=== PATIENT | female | born 1965 | race Caucasian/White ===

== ENCOUNTER 2025-06-13 11:38 | Outpatient (CLI) | payer SELFPAY ==
--- NOTE | ~2025-06-13 | US_ITS ---
Renal-Bladder ultrasound Clinical History: Family history of renal cell cancer Technique: Real-time sonographic imaging of the kidneys and urinary bladder was performed. Findings: The right kidney measures 9.5 cm in length and the left kidney measures 9.4 cm. There is no hydronephrosis or renal calculus identified. Renal cortical echogenicity is within normal limits. No renal mass lesion is identified. The urinary bladder is moderately distended at the time of this exam. No intraluminal echoes are iden tified. No abnormal wall thickening is seen. Impression: Unremarkable ultrasound of the kidneys and urinary bladder. Reviewed, dictated and finalized at location M. Impression: Unremarkable ultrasound of the kidneys and urinary bladder.
== END 2025-06-13 11:39 | disposition home or self-care (01) ==
LOC: MICIMG 11:43
PROVIDERS: PCP Nurse Practitioner Adult Health; Visit Provider Nurse Practitioner Adult Health
DX: Z80.51 Family history of malignant neoplasm of kidney (principal)
CPT/HCPCS: 76775

== ENCOUNTER 2025-10-18 08:20 | Outpatient (CLI) | payer OTHER, SELFPAY ==
--- NOTE | ~2025-10-18 | MM_ITS ---
EXAMINATION: MM screening roxann BI w gm HISTORY: Screening. TECHNIQUE: Craniocaudal and mediolateral oblique 3-D tomosynthesis images were obtained and synthetic 2-D images were generated. CAD analysis was submitted and interpreted. COMPARISON: None available. BREAST PARENCHYMAL COMPOSITION: Not Dense: The breasts are almost entirely fatty FINDINGS: No suspicious masses are seen. There are no suspicious calcifications. No unexplained architectural distortion is seen. There are no skin or nipple abnormalities identified. There is no adenopathy seen on the images submitted. IMPRESSION: No mammographic evidence to suggest malignancy is seen. The patient may return to screening mammography as per ACR guidelines. BI-RADS 1 - Negative. Reviewed, dictated and finalized at location C. DOCUMENT IMPROVEMENT SPECIALIST
== END 2025-10-18 08:21 | disposition home or self-care (01) ==
LOC: ANHFOHIMG 08:22
PROVIDERS: PCP Nurse Practitioner Adult Health; Visit Provider Nurse Practitioner Adult Health
DX: Z12.31 Encounter for screening mammogram for malignant neoplasm of breast (principal)
CPT/HCPCS: 77063; 77067

== ENCOUNTER 2025-11-05 14:27 | Emergency (ER) | payer OTHER, SELFPAY ==
--- OUTSIDE RECORDS SUMMARY | 2024-10-22 15:30 | XMS_ITS ---
Author Organization [facility] Address Replaced by [facility] [place] [address] [id number] Care Team Providers Care Dispenser Operator Name Role Phone Duarte Ly Primary Care Provider Migration, Provider Unavailable Unavailable REASON FOR VISIT Multum To Medispan Conversion Encounter Medications Medication SIG (Take, Route, Frequency, Duration) Notes Start Date End Date Status Levothyroxine Sodium 25 MCG Tablet 1 tab(s) orally once a day Unknown Ezetimibe 10 MG Tablet 1 tab(s) orally o nce a day Unknown Plaquenil 200 MG Tablet 1 tab(s) orally once a day Unknown Encounters Encounter Location Date Provider Diagnosis [facility] [place] [id number] [address] [id number] 10/22/2024 Provider Migration Plan Of Treatment No Information Progress Notes * Paolo GARLANDaDOB:1965 (60 yo F)Acc No.[id number]:10/22/2024 Patient: Jennifer Ohara Provider: Jim cross Migration :1965 A ge:59 Y S ex:Female Date:10/22/2024 Address:[address] [place], [place] [phone] Pcp:Duarte Ly Subjective: * Chief Complaints: * M ultum To Medispan Conversion Encounter * Medications: U nknownPlaquenil 200 MG Tablet 1 tab(s) orally once a day Ezetimibe 10 MG Tablet 1 tab(s) orally once a day Levothyroxine Sodium 25 MCG Tablet 1 tab(s) orally once a day Unknown Plaquenil 200 MG Tablet 1 tab(s) orally once a day Unknown Ezetimibe 10 MG Tablet 1 tab(s) orally once a day Unknown Levothyroxine Sodium 25 MCG Tablet 1 tab(s) orally once a day * Electronic signature of Prov galindo Migration on 11/05/2025 at 02:29 PM PEANUT SEPARATOR Sign off status: Pending * Provider: Jim cross Migration Date: 1 12/23/2023 Generated for Dyan bosch/Jose/Rodrick on: 01/06/2025 02:29 PM PEANUT SEPARATOR
--- OUTSIDE RECORDS SUMMARY | 2025-11-05 14:29 | XMS_ITS | Data Portability ---
Author Organization ID - [facility] [employer], Main Office Address [address] [place] [address] Care Team Providers Care Nursing Coordinator Name Role Phone GABRIEL BLANCAS Primary Care Provider [phone] JALYN MARIN Hydraulic Corrugating Machine Operator [phone] TONG FITZGERALD Dry Lumber Grader Assessment Encounter Date Assessment Date Assessment LastModified by Organization Details LastModified Time 07/06/2024 07/06/2024 04/13/2024: [facility] did not report the labs TSH 6.86H, FT4 1.0 Chol 221, LDL 125, TG 162 VIT D 30 Not available 07/06/2024 10:18:58 10/03/2024 10/03/2024 04/13/2024: [facility] did not report the labs TSH 6.86H, FT4 1.0 Chol 221, LDL 125, TG 162 VIT D 30 09/23/2024: [facility] Stable Not available 10/03/2024 11:08:34 Plan of Treatment Reminders Order Date Submit Date Provider Last Modified By Organization Details Last Modified Time Details Appointments None recorded. Lab vitamin D, 25-hydroxy, total, serum 2023 024 [email or web address] [facility], [address], [place], [address], 08:33:47 rapid flu (A+B) 2023 024 [email or web address] 6 [facility], [address] [place], [address], 4 16:49:38 rapid strep group A, throat [address] [facility], [address] [place], [address], 4 16:49:38 SARS CoV 2 RNA (COVID-19), QL, security operations center analyst-PCR, respiratory specimen [address] [facility], [address] [place], [address], 4 16:49:38 CMP, serum or plasma 2023 024 [place] [id number] [facility], [address] , [place], [address], 5 08:33:46 CBC w/ auto diff 2023 024 [place] [address] 6 [facility], [address] , [place], [address], 5 08:33:46 TSH + free T4, serum 2023 [place] [address] 6 [facility], [address] , [place], [address], 5 08:33:47 lipid panel, serum 2023 [place] [address] 6 [facility], [address] , [place], [address], 5 08:33:47 vitamin B12 + folate, serum or blood 2023 [place] [address] 6 [facility], [address] , [place], [address], 5 08:33:47 CMP, serum or plasma 2023 024 awkins 6 [facility], [address] , [place], [address], 5 09:13:20 CBC w/ auto diff 2023 024 [email or web address] 6 [facility], [address], [place], [address], 5 09:13:20 TSH + free T4, serum 2023 024 [email or web address] 6 [facility], [address], [place], [address], 5 09:13:20 lipid panel, serum 2023 024 [email or web address] 6 [facility], [address], [place], [address], 5 09:13:21 vitamin D, 25-hydroxy, total, serum 2023 024 [email or web address] 6 [facility], [address], [place], [address], 5 09:13:21 vitamin B12 + folate, serum or blood 2023 024 [email or web address] 6 [facility], [address], [place], [address], 5 09:13:21 CMP, serum or plasma 2023 024 [email or web address] 6 [facility], [address], [place], [address], 4 08:52:38 CBC w/ auto diff 2023 024 [email or web address] 6 [facility], [address], [place], [address], 4 08:52:39 TSH + free T4, serum 2023 024 [email or web address] 6 [facility], [address], [place], [address], 4 08:52:39 lipid panel, serum 2023 024 [email or web address] 6 [facility], [address], [place], [address], 4 08:52:39 vitamin D, 25-hydroxy, total, serum 2023 024 [email or web address] 6 [facility], [address], [place], [address], 4 08:52:39 vitamin B12 + folate, serum or blood 2023 024 [email or web address] 6 [facility], [address], [place], [address], 4 08:52:39 TSH + free T4, serum 2023 024 [email or web address] 2 [facility], [address], [place], [address], 4 07:55:06 lipid panel, serum 2022 023 SESAR [facility], [address], [place], [address], 3 02:48:48 CMP, serum or plasma 2022 023 SESAR [facility], [address], [place], [address], 3 02:48:49 Referral gynecologis t referral - Please call patient to schedule. 2023 024 [email or web address] 6 Kita Chávez MD, [address], [address], [place], [address], 5 08:16:14 cardiologis t referral 2023 024 [email or web address] [place], [address] , [place], [address], 4 15:22:58 gynecologis t referral 2023 024 [email or web address] 6 Kathy Shin, [address], [address], [place], [address], Ph [phone] 5 08:09:56 cardiologis t referral 2023 024 [email or web address] 82 [place], [address], [place], [address], 5 08:22:05 otolaryngol ogist referral 2023 024 [email or web address] 6 Danilo Carreno MD, [address], [place], [address], 5 08:09:57 gynecologis t referral 2023 024 [email or web address] 6 Kathy Shin, [address], [address], [place], [address], Ph [phone] 4 09:13:43 otolaryngol ogist referral 2023 024 [email or web address] 6 Gurinder Jarrell MD, [address], [place], [address], 4 14:38:49 Procedures colonoscopy screening (PROC) 2023 024 [email or web address] 6 Jalyn Marin MD, [address], [address], [place], [address], 4 08:52:48 Surgeries None recorded. Imaging MAMMO, screening, digital, bilateral - Please call patient to schedule. 2023 024 [facility] Central Scheduling, [address] [facility], [place], [address], 4 16:06:41 DEXA, axial skeleton 2023 024 [facility] (Radiology), [address] [place], [address], 4 15:09:55 DEXA, axial skeleton 2023 024 [facility] (Radiology), [address] [place], [address], 4 09:50:35 US, thyroid 2023 024 [facility] (Radiology), [address] [place], [address], 4 11:37:49 DEXA, axial skeleton 2023 024 [facility] (Radiology), [address] [place], [address], 4 09:52:50 MAMMO, screening, bilateral 2022 023 [facility] (Radiology), [address] [place], [address], 3 11:08:36 Medication Orders azithromyci n 250 mg tablet 2023 024 [facility]55208, [address], [place], [place], [id number], 4 11:27:30 Livalo 2 mg tablet 2023 024 [email or web address] [facility], [address], [place], [place], [id number], 4 10:57:53 levothyroxi ne 75 mcg tablet 2023 024 [facility]27899, [address], [id number], 4 10:19:15 phentermine 37.5 mg tablet [email or web address] [facility]64309, [address], [place], [place], [id number], 4 09:47:10 phentermine 37.5 mg tablet 2022 023 [email or web address] [address] [facility], [address], [place], [place], [id number], 4 09:47:10 Patient TargetsNo targets recorded. Patient Instructions Encounter Date Encounter Id Patient Instructions Last Modified By Organization Details Last Modified Time 02/04/2024 [id number] follow up with ENT marianne Not available 02/16/2024 16:37:37 Reason for Referral Display Associate Referral for Gy necologic examination Referring Physician: Lionel Roca Medicine, Encounter Date: 03/23/2024 Wide Piece Goods Inspector Referral fo r Otitis media Referring Physician: Lionel Roca Medicine, Encounter Date: 03/23/2024 Display Associate Referral for Gy necologic examination Referring Physician: Lionel Roca, Encounter Date: 07/06/2024 Wide Piece Goods Inspector Referral fo r Otitis media Referring Physician: Lionel Roca, Encounter Date: 07/06/2024 Dry Lumber Grader Referral for Sc reening for cardiovascular system disease Referring Physician: Lionel Roca, Encounter Date: 07/06/2024 Display Associate Referral for Gy necologic examination Please call patient to schedule. Referring Physician: Lionel Roca, Encounter Date: 10/03/2024 Dry Lumber Grader Referral for Sc reening for cardiovascular system disease Referring Physician: Gabriel Blancas, Internal Medicine, Encounter Date: 10/03/2024 Results Created Date Observation Date Name Description Value Unit Range Abnormal Flag Note LastModifiedBy Organization Detail LastModifiedTime 07/28/2007/29/2023 LIPID PANEL (REFL ) cholesterol, total 197 mg/dL <200 normal Not Available [facility] [address] [address] [place], [address], 07/29/2023 02:48:48 07/28/2007/29/2023 LIPID PANEL (REFL ) HDL cholesterol 67 mg/dL > or = 50 normal Not Available [facility] [address] [address] [place], [address], 07/29/2023 02:48:48 07/28/2007/29/2023 LIPID PANEL (REFL ) triglyceride s 199 mg/dL <150 high Not Available [address] [address] [place], [address], 07/29/2023 02:48:48 07/28/2007/29/2023 LIPID PANEL (REFL ) LDL-choleste rol 98 mg/dL _(migue c) normal Refer ence range : <100 Jenni able range <100 mg/dL for prima ry preve ntion ; <70 mg/dL for patie nts with CHD or diabe tic patie nts with > or = 2 CHD risk facto rs. LDL-C is now calcu lated using the Nano cooley-Hop kins jeisonu beverly n, which is a valid ated novel metho d mani ogdente r accur acy than the Fried shweta equat ion in the estim ation of LDL-C . Nano cooley SS et al. BALTAZAR. 2013; 310(1 9): 2061- 2068 (http ://ed vasquezati on.Qu Jeannine espino tics. com/f aq/FA Q164) Not Available [facility] [address] [address] [place], [address], 07/29/2023 02:48:48 09/07/29/2023 LIPID PANEL (REFL ) chol/HDLC ratio 2.9 (calc ) <5.0 normal Not Available [address], [address], 07/29/2023 02:48:48 07/28/2007/29/2023 LIPID PANEL (REFL ) non HDL cholesterol 130 mg/dL _(migue c) <130 high For patie nts with diabe sundar plus 1 major ASCVD risk facto r, treat ing to a non-H DL-C goal of <100 mg/dL (LDL- C of <70 mg/dL ) is consi dered a thera peuti c optio n. Not Available [address], [address], 07/29/2023 02:48:48 07/28/2007/29/2023 COMPR EHENS NATHALIE METAB OLIC PANEL glucose 101 mg/dL 65-99 high Fasti ng refer ence inter gavi For someo ne witho ut known diabe sundar, a gluco se value betwe en 100 and 125 mg/dL is consi stent with predi abete s and shoul d be confi rmed with a follo w-up test. Not Available [address], [address], 07/29/2023 02:48:49 07/28/2007/29/2023 COMPR EHENS NATHALIE METAB OLIC PANEL urea nitrogen (BUN) 17 mg/dL 7-25 normal Not Available [address], [address], 07/29/2023 02:48:49 07/28/2007/29/2023 COMPR EHENS NATHALIE METAB OLIC PANEL creatinine 0.97 mg/dL 0.50-1 .05 normal Not Available [address] [address] [place], [address], 07/29/2023 02:48:49 07/28/2007/29/2023 COMPR EHENS NATHALIE METAB OLIC PANEL eGFR 67 mL/mi n/1.7 3m2 > or = 60 normal Not Available [address], [address], 07/29/2023 02:48:49 07/28/20 23 07/29/2023 COMPR EHENS NATHALIE METAB OLIC PANEL BUN/creatini ne ratio SEE NOTE: (calc ) 6-22 Not Repor jose de jesus: BUN and Creat inine are withi n refer ence range . Not Available [address], [address], 07/29/2023 02:48:49 07/28/20 23 07/29/2023 COMPR EHENS NATHALIE METAB OLIC PANEL sodium 141 mmol/ L 135-14 6 normal Not Available [address], [address], 07/29/2023 02:48:49 07/28/20 23 07/29/2023 COMPR EHENS NATHALEI METAB OLIC PANEL potassium 4.7 mmol/ L 3.5-5. 3 normal Not Available [address], [address], 07/29/2023 02:48:49 07/28/20 23 07/29/2023 COMPR EHENS NATHALIE METAB OLIC PANEL chloride 105 mmol/ L 98-110 normal Not Available [address], [address], 07/29/2023 02:48:49 07/28/20 23 07/29/2023 COMPR EHENS NATHALIE METAB OLIC PANEL carbon dioxide 28 mmol/ L 20-32 normal Not Available [address], [address], 07/29/2023 02:48:49 07/28/20 23 07/29/2023 COMPR EHENS NATHALIE METAB OLIC PANEL calcium 9.0 mg/dL 8.6-10 .4 normal Not Available [facility] [address] [address], [place], [address], 07/29/2023 02:48:49 07/28/2007/29/2023 COMPR EHENS NATHALIE METAB OLIC PANEL protein, total 6.6 g/dL 6.1-8. 1 normal Not Available [address], [address], 07/29/2023 02:48:49 07/28/2007/29/2023 COMPR EHENS NATHALIE METAB OLIC PANEL albumin 3.9 g/dL 3.6-5. 1 normal Not Available [address], [address], 07/29/2023 02:48:49 07/28/20 23 07/29/2023 COMPR EHENS NATHALIE METAB OLIC PANEL globulin 2.7 g/dL_ (calc ) 1.9-3. 7 normal Not Available [address], [address], 07/29/2023 02:48:49 07/28/2007/29/2023 COMPR EHENS NATHALIE METAB OLIC PANEL albumin/glob ulin ratio 1.4 (calc ) 1.0-2. 5 normal Not Available [address], [address], 07/29/2023 02:48:49 07/28/2007/29/2023 COMPR EHENS NATHALIE METAB OLIC PANEL bilirubin, total 0.5 mg/dL 0.2-1. 2 normal Not Available [address], [address], 07/29/2023 02:48:49 07/28/2007/29/2023 COMPR EHENS NATHALIE METAB OLIC PANEL alkaline phosphatase 53 U/L 37-153 normal Not Available [address], [address], 07/29/2023 02:48:49 07/28/20 23 07/29/2023 COMPR EHENS NATHALIE METAB OLIC PANEL AST 14 U/L 10-35 normal Not Available [facility] [address] [place], [address], 07/29/2023 02:48:49 07/28/20 23 07/29/2023 COMPR EHENS NATHALIE METAB OLIC PANEL ALT 13 U/L 6-29 normal Not Available [facility] [address] [place], [address], 07/29/2023 02:48:49 04/19/20 24 04/19/2024 COLOG UARD cologuard result reportable Sample Could Not Be Proces sed n/a The colle ction kit was damag ed prior to recei pt in the labor atory . The patie nt will be conta cted to initi ate a new sampl e colle ction . Not Available [facility] [address], [place], [address], 04/21/2024 05:58:58 05/03/20 24 05/03/2024 COLOG UARD cologuard result reportable Negati ve negati ve normal NEGAT NATHALIE TEST RESUL T. A negat nathalie Colog uard resul t indic ates a low likel ihood that a color ectal cance r (CRC) or advan lucian adeno ma (stephanie omato us polyp s with more advan lucina pre-m align ant featu res) is prese nt. The chanc e that a perso n with a negat nathalie Colog uard test has a color ectal cance r is less than 1 in 1500 (nega tive predi ctive value >99.9 %) or has an advan lucina adeno ma is less than 5.3% (nega tive predi ctive value 94.7% ). These data are based on a prosp ectiv e cross -sect ional study of 10,00 0 indiv idual s at [facility] risk for color ectal cance r who were scree lyle with both Colog uard and colon oscop y. (Hanke garry T. et al, N Engl J Med 2014; 370(1 4):12 86-12 97) The dolly l value (refe rence range ) for this assay is negat nathalie. COLOG UARD RE-SC REENI NG RECOM MENDA TION: Perio dic color ectal cance r scree leobardo is an impor tant part of preve ntive healt hcare for asymp tomat ic indiv idual s at [facility] risk for color ectal cance r. Follo wing a negat nathalie Colog uard resul t, the Ameri can Cance r Socie ty and U.S. Multi -Soci ety Task Force scree leobardo guide lines recom mend a Colog uard re-sc reeni ng inter gavi of 3 years . Refer ences : Ameri can Cance r Socie ty Guide line for Color ectal Cance r Scree leobardo: https ://ale w.can cer.o rg/ca ncer/ colon -rect al-ca ncer/ detec tion- diagn osis- stagi ng/ac s-rec ommen datio ns.ht ml.; Rickie FERNANDEZ, Simon whitt CR, Blayne MORRISSEY, Color ectal Cance r Scree leobardo: Recom menda tions for Physi cians and Patie nts from the U.S. Multi -Soci ety Task Force on Color ectal Cance r Scree leobardo , Radha multani y 2017; 112:1 016-1 030. TEST DESCR IPTIO N: Rover site algor ithmi c mirian sis of stool DNA-b iostephanie kers with hemog lobin immun oassa y. Quant itati ve value s of indiv idual bioma rkers are not repor table and are not assoc iated with indiv idual bioma rker resul t refer ence range s. Colog uard is inten ded for color ectal cance r scree leobardo of adult s of eithe r sex, 45 years or older , who are at [facility] sk for color ectal cance r (CRC) . Colog uard has been appro rowan for use by the U.S. FDA. The perfo rmanc e of Colog uard was estab lishe d in a cross secti onal study of [facility] adult s aged 50-84 . Colog uard perfo rmanc e in patie nts ages 45 to 49 years was estim ated by sub-g melp mirian sis of near- age group s. Colon oscop ies perfo rmed for a posit nathalie resul t may find as the most clini jayashree signi fican t lesio n: color ectal cance r [4.0% ], advan lucina adeno ma (incl uding sessi le adelina jose de jesus polyp s great er than or equal to 1cm diame ter) [20%] or non- advan lucina adeno ma [31%] ; or no color ectal neopl jose manuel [45%] . These estim ates are deriv ed from a prosp ectiv e cross -sect ional scree leobardo study of 0 indiv idual s at [facility] risk for color ectal cance r who were scree lyle with both Colog uard and colon oscop y. (Tosha Jon et al, N Engl J Med 2014; 370(1 4):12 86-12 97.) Colog uard may produ ce a false negat nathalie or false posit nathalie resul t (no color ectal cance r or preca ncero us polyp prese nt at colon oscop y follo w up). A negat nathalie Colog uard test resul t does not guara ntee the absen ce of CRC or advan lucina adeno ma (pre- cance r). The curre nt Colog uard scree leobardo inter gavi is every 3 years . (Amer ican Cance r Socie ty and U.S. Multi -Soci ety Task Force ). Colog uard perfo rmanc e data in a 0 patie nt pivot al study using colon oscop y as the refer ence metho d can be [facility]es [facility] locat ion: www.e xactl abs.c om/re sults . Addit ional descr iptio n of the Colog uard test proce ss, warni ngs and preca ution s can be found at www.tee brambila.tee om. Not Available [facility] [address], [place], [address], 05/09/2024 00:17:51 10/03/20 24 10/03/2024 RAPID STREP A DNA strep A DNA, SAMPSON NEGATI VE negati ve Not Available [facility] (Lab) [address] [place], [address], 10/03/2024 13:07:46 10/03/20 24 10/03/2024 COVID -19, INFLU RICHARD A+B, PCR sars-cov-2 RNA(covid19) ,RT-PCR NEGATI VE This test has been autho rized by the FDA under an Emerg ency Use Autho rizat ion (EUA) for use by autho rized labor atori es. Negat nathalie resul ts do not precl ude SARS- CoV-2 and shoul d not be used as the sole basis for treat ment or other patie nt manag ement decis ions. Test resul ts shoul d be corre lated with the clini migue histo ry, epide miolo gical data, and other data avail able to the clini jabari evalu ating the patie nt. Enid santa the Fact Sheet s for healt h care provi ders and patie nts at the [facility] sundar: https ://ww w.fda .gov/ media /1363 12/do wnloa d https ://ww w.fda .gov/ media /1363 13/do wnloa d Metho dolog y: Real- Time RT-PC R Not Available [facility] (Lab) [address] [place], [address], 10/03/2024 13:56:03 10/03/20 24 10/03/2024 COVID -19, INFLU RICHARD A+B, PCR influenza A RNA, RT-PCR NEGATI VE Not Available [facility] (Lab) [address] [place], [address], 10/03/2024 13:56:03 10/03/20 24 10/03/2024 COVID -19, INFLU RICHARD A+B, PCR influenza B RNA, RT-PCR NEGATI VE Not Available [facility] (Lab) [address] [place], [address], 10/03/2024 13:56:03 08/11/20 23 08/11/2023 scree leobardo breas t padmini, bilat [facility] [address] [place] [address] Dahlia vidal Name: LULA POLANCO ion #: [id number] Sex: F : 1964 5 Dictat ed By: Arnold Jefferson Attend ing Physic narcisa: ELMACK IB, RUNDA Orderi ng Physic narcisa: ELQUINTINAT IB, RUNDA Exam Date: 2022 08:28 AM Exam Name: MG SCRN BREAST PADMINI BILAT Admitt ing Diagno sis(es ): Compar terra: Screen ing mammog alen Techni que: Bilate ral CC and latera l images obtain ed are fulfil led with bilate ral tomosy nsthes is. Breast compos ition: fatty Digita l techni que per standa rd protoc ol Findin gs: No suspic ious mass or calcif icatio n is identi fied. No ruben ectura l distor tion is seen. There are no abnorm alitie s around the nipple areola r comple x. No adenop athy is apprec iated. . Conclu bruno: No mammog raphic eviden ce of malign paris. Mammog raphic assess ment catego ry: BI-RAD S catego ry: 1 Negati ve A letter with the result s of this mammog alen was mailed to the dahlia vidal Ronnie onical ly Signed by: Arnold Jefferson at 2022 10:05: 29 AM Page 1 [email or web address] [facility] (Imaging) [address] [place], [address], 08/12/2023 17:10:23 08/11/20 23 08/11/2023 MAMMO , ad booth, bilat eral No observ ation record ed. [email or web address] [facility] [address], [place], [address], 08/12/2023 17:10:23 08/13/20 23 08/11/2023 scredeborah booth breas t padmini, bilat [facility] [address] [facility] [address], [place] [address] Patigordon t Name: LULA POLANCO [employer] ion #: [id number] Sex: F : 1964 3 Locati on: RAD Attend ing Physic narcisa: ELKHAT IB, RUNDA Orderi ng Physic narcisa: ELKHAT IB, RUNDA Exam Date: 023 8:28 AM Exam Name: MG MCCULLOUGH BREAST PADMINI BILAT Admitt ing Diagno sis(es ): MAMMOG CHANEL REPORT - FINAL EXAM: SCRN BREAST PADMINI BILAT HISTOR Y: SCREEN ING MAMMOG ALEN 58-yea r-old female with no curren t breast compla ints COMPAR TERRA: 2020, 2018 TECHNI QUE: Bilate ral CC and MLO views of the breast s were perfor med. Digita l Mammog chanel images were obtain ed. CAD (compu ter assist ed detect ion) was utiliz ed. 3D Digita l breast tomosy nthesi s was perfor med and used in the interp retati on of images . FINDIN GS: The breast s are almost entire ly fatty. No new masses , asymme tries, suspic ious calcif icatio ns, or ruben ectura l Page 1 of 2 [facility] Dahlia vidal Name: LULA POLANCO Access ion #: [id number] Sex: F : 1964 5 Exam Date: 8:28 AM Exam Name: MG MCCULLOUGH BREAST PADMINI BILAT Admitt ing Diagno sis(es ): distor tion are seen. IMPRES BRUNO: BIRADS 1: Assess ment comple te. Negati ve. Recomm end annual screen ing mammog chanel. Accord ing to the [employer], yearly mammog naa are recomm ended starti ng at age 40 and contin uing as long as the woman is in good health . Clinic al Breast Exam should be part of the period health exam-a bout every 3 years for women in their 20s and 30s and every year for women 40 and over. Breast self-e xam is an option for women in their 20s. Any breast change noted on the breast self-e xam she would be report ed prompt ly to the dahlia vidla's [facility] er. A negati ve mammog chanel report should not discou rage follow -up or biopsy of a clinic ally signif icant findin g and/or abnorm ality. Dense breast tissue may obscur e small neopla sms. This dahlia vidal has been entere d into a mammog chanel remind er system with a target date for her next mammog alen. Create d and electr onical ly signed by: Jose Francisco cabrera MD Signed Date: 9:28 AM (CT) Dictat ed by: Jose Francisco cabrera MD DD: 9:28 AM (CT) DT: 9:28 AM (CT) Page 2 of [email or web address] [place] [address] (Imaging) [address] [place], [address], 08/17/2023 10:33:36 07/18/20 24 07/18/2024 DEXA, axial skele ton [facility] [address] [place] [address] [phone] Dahlia vidal Name: LULA POLANCO Access ion #: [id number] Sex: F : 1964 2 Dictat ed By: Jose Francisco bhat Attend ing Physic narcisa: BOOGIE ROSANGELA RESENDIZ Ordersergo ng Physic narcisa: BOOGIE BARBARAVIDYA JOSE ALBERTORIGOBERTO [place] Exam Date: 2023 07:58 AM Exam Name: XR DEXA-H IPS PELVIS SPINE Admitt ing Diagno sis(es ): INDICA TION: screen ing for osteop orosis TECHNI QUE: DEXA SCAN BONE DENSIT Y REPORT : AP SPINE (L1-L4 ) : T Score: -0.2 LEFT FEMORA L NECK : T Score: -2.8 LEFT HIP TOTAL : T Score: -1.3 RIGHT FEMORA L NECK : T Score: -2.5 RIGHT HIP TOTAL : T Score: -1.0 IMPRES BRUNO: 1. Osteop orosis accord ing to World Health Organi zation criter ia. 2. Sugges t follow -up in 1-2 years. FRAX not assess ed in this osteop orotic patien t. ------ ------ ------ ------ ------ ------ ------ ------ ----- *FRAX versio n 3.08. Fractu re probab ility calcul ated for an untrea jose de jesus patien t. Fractu re probab ility may be lower if the patien t has receiv ed treatm ent. T-scor e: compar terra by paris monique ion (JESUS) to a young adult popula tion, matche d for sex and ethnic ity (used for postme nopaus al women and men >50 years) and classi fied by WHO criter ia. Page 1 [facility] [address] [place] [address] Patien t Name: LANCE LenoraLULA Access ion #: [id number] Sex: F : 1964 2 Dictat ed By: Jose Francisco bhta Attend ing Physic narcisa: ROSANGELA Troncoso NINOSergo RESENDIZ Ordersergo ng Physic narcisa: BOOGIE ROSANGELA RESENDIZ Exam Date: 2023 07:58 AM Exam Name: XR DEXA-H IPS PELVIS SPINE Admitt ing Diagno sis(es ): -1.0: normal <-1.0 to >-2.5: osteop enia -2.5: osteop orosis -2.5 plus fragil ity fractu re: severe osteop orosis Z-scor e: compar ed by SD to an age, sex, and ethnic ity popula tion (used for premen opausa l women, men <50 years, and childr en instea d of T-scor e WHO criter ia 4) <-2.0: below expect ed range/ low bone densit y for age, and a cause should be sought HS:Y Electr onical ly Signed by: Jose Francisco bhat at 2023 08:48: 19 AM Page [address] (Imaging) [address] [place], [address], 10/31/2024 16:23:16 07/18/20 24 07/18/2024 DEXA No observ ation record ed. [email or web address] [facility] [address] [place], [address], 08/21/2025 10:58:48 07/18/20 24 07/18/2024 DEXA, axial skele ton No observ ation record ed. [address] [place], [address], 10/31/2024 16:23:17 07/20/20 24 US, head + neck, soft tissu e [facility] [address] [place] [address] [phone] Patien t Name: LULA POLANCO ion #: [id number] Sex: F : 1964 5 Dictat ed By: Jared Perez Attend ing Physic narcisa: ROSANGELA OROZCO [facility] Physic narcisa: ROSANGELA OROZCO Exam Date: 2023 08:18 AM Exam Name: US NECK/H EAD SOFT TISSUE Admitt ing Diagno sis(es ): ULTRAS OUND SOFT TISSUE [facility] AL INDICA TION: nodule s TECHNI QUE: Multip le real time sonogr aphic images of the thyroi d were obtain ed. FINDIN GS: The right thyroi d gland measur es 4 x 1 x 1.3 cm. The left thyroi d gland measur es approx imatel y 4 x 2 x 2 cm. The isthmu s measur es 0.4 cm. Bilate ral TI-RAD S 3 measur ing up to 2 cm. This appear s isoech oic and solid. No suspic ious calcif icatio ns. Follow -up in 1 year IMPRES BRUNO: Bilate ral TI-RAD S 3 measur ing up to 2 cm. This appear s isoech oic and solid. No suspic ious calcif icatio ns. Follow -up in 1 year [facility] Radiol ogy TI-RAD S Catego neli and Recomm endati ons (2017) : TR1: 0 points , Benign , No FNA TR2: 2 points , Not suspic ious, No FNA TR3: 3 points , Mildly suspic ious, FNA if > or = 2.5 cm, Follow if > or = 1.5 cm Page 1 [facility] [address] [address] Patien t Name: LULA POLANCO [facility] ion #: [id number] Sex: F : 1964 5 Dictat ed By: Jared Perez Attend ing Physic narcisa: BOOGIE ARIAS [facility] Physic narcisa: ROSANGELA OROZCO Exam Date: 2023 08:18 AM Exam Name: US NECK/H EAD SOFT TISSUE Admitt ing Diagno sis(es ): TR4: 4-6 points , Modera tely Suspic ious, FNA if > or = 1.5 cm, Follow if > or = 1.0 cm TR5: 7+ points , Highly Suspic ious, FNA if > or = 1.0 cm, Follow if > or = 0.5 cm Follow -up ultras ound guidel ang: TR5: yearly for 5 years, if no growth or change in TI-RAD S level TR4: at 1, 2, 3 and 5 years, if no growth or change in TI-RAD S level TR3: at 1, 3 and 5 years, if no growth or change in TI-RAD S level If increa sed but below thresh old for FNA, repeat in one year. Source : ACR Thyroi d Hortensiain g, Report ing and Data System (TI-RA DS): White Paper of the ACR TI-RAD S Commit navid. Steph et al., J Am David Radiol 2017;1 4:587- 595. Electr onical ly Signed by: Jared Perez at 2023 10:23: 47 AM Page [address] (Imaging) [address] [place], [address], 10/31/2024 16:23:17 07/20/20 24 07/20/2024 US, thyro id No observ ation record ed. [address] [place], [address], 10/31/2024 16:23:18 07/20/20 24 07/20/2024 US, thyro id No observ ation record ed. [address] (Radiology) [address] [place], [address], 10/31/2024 16:23:18 Result Notes Documentation Provider Name and Address Organization Details Recorded Time Dexa, Axial Skeleton : [facility] [address] [place] [address] Patient Name: LULA GARLAND Sex: F : 1965 Dictated By: Jose Francisco Cowan Attending Physician: GABRIEL BLANCAS Ordering Physician: GABRIEL BLANCAS Exam Date: 07/18/2024 07:58 AM Exam Name: XR DEXA-HIPS PELVIS SPINE Admitting Diagnosis(es): INDICATION: screening for osteoporosis TECHNIQUE: DEXA SCAN BONE DENSITY REPORT: AP SPINE (L1-L4) : T Score: -0.2 LEFT FEMORAL NECK : T Score: -2.8 LEFT HIP TOTAL : T Score: -1.3 RIGHT FEMORAL NECK : T Score: -2.5 RIGHT HIP TOTAL : T Score: -1.0 IMPRESSION: 1. Osteoporosis according to World Health Organization criteria. 2. Suggest follow-up in 1-2 years. FRAX not assessed in this osteoporotic patient. --- *FRAX version 3.08. Fracture probability calculated for an untreated patient. Fracture probability may be lower if the patient has received treatment. T-score: comparison by standard deviation (SD) to a young adult population, matched for sex and ethnicity (used for postmenopausal women and men >50 years) and classified by WHO criteria. Page 1 [place] [id number] Patient Name: LULA GARLAND Sex: F : 1965 Dictated By: Jose Francisco Cowan Attending Physician: COREY RIOS Ordering Physician: GABRIEL BLANCAS Exam Date: 07/18/2024 07:58 AM Exam Name: XR DEXA-HIPS PELVIS SPINE Admitting Diagnosis(es): -1.0: normal <-1.0 to >-2.5: osteopenia -2.5: osteoporosis -2.5 plus fragility fracture: severe osteoporosis Z-score: compared by SD to an age, sex, and ethnicity population (used for premenopausal women, men <50 years, and children instead of T-score WHO criteria 4) <-2.0: below expected range/low bone density for age, and a cause should be sought HS:Y Page 2 Gabriel Blancas MD [address], [address], [place], [address], [employer] 10/31/2024 16:23:16 Problems Name Problem SNOMED Code Status Onset Date Resolution Date Notes Provider Name and Address Organization Details Recorded Time Menopause present 968103877 Active Not Available [facility] 3 22:36:28 Change in skin lesion 065731387 Active Not Available [facility] 3 22:36:28 Contact dermatitis 52701222 Active Not Available [facility] 3 22:36:28 Anxiety 91289655 Active Not Available [facility] 3 22:36:28 Polyp of colon 48607245 Active Not Available [facility] 3 22:36:28 Hemorrhoids 29759292 Active Not Available [facility] 3 22:36:28 Palpitations 80740454 Active Not Available [facility] 3 22:36:28 Fatigue 14292958 Active Not Available [facility] 3 22:36:28 Conjunctiviti s 8051843 Active Not Available [facility] 3 22:36:28 Serum creatinine above reference range 358308699 Active 2021 Not Available [facility] 3 22:36:28 Hyperlipidemi a 80017987 Active 2022 Not Available [facility] 3 22:36:28 Obesity 609686049 Active 2022 Not Available [facility] 3 22:36:28 Hypothyroidis m 64457284 Active 2023 THIERNO Wong [address], [address], [place], [address] , [employer] 4 09:18:11 Serum vitamin B12 below reference range 611016172 Active 2023 Gabriel troncoso MD [address], [address], [place], [address] , [employer] 4 10:23:18 Otitis media 38218380 Active 2023 Gabriel troncoso MD [address] [facility], [address], [place], [address] , [facility] [email or web address] [facility] 4 10:26:01 Hypertriglyce ridemia 956606259 Active 2023 Elizabeth Smith MA null, [facility] [email or web address] [facility] 4 17:08:10 Upper respiratory infection 44061542 Active 2023 Gabriel troncoso MD [address] [facility] [facility] [address], [place], [address] , [facility] [email or web address] [facility] 4 11:10:35 Osteopenia 171142108 Active 2023 Kelsie Nelson CMA null, [facility] [employer] [facility] 4 15:29:47 Depressive disorder 19047596 Active 2024 Gabriel troncoso MD [address] [place] [address], [place], [address] , [facility] [employer] [facility] 5 12:52:13 Notes:Some problems listed i n Document: #[id number] could not be added to this patient's chart. Please review this document and add these problems to the patient's chart manually as needed. Problem Notes None recorded. Procedures Surgical History Date Name Laterality Status Provider Name and Address Organization Details Recorded Time 11/09/1993 Mesh (implantab le) completed Priscila Corrales RN [facility] [email or web address] [facility] 02/04/2024 09:06:43 Imaging Results None recorded. Procedure Notes None recorded. Medical Equipment None Reported. Allergies No known drug allergies Medications Name Sig Start Date Stop Date Status Note LastModified by Organization Details LastModified Time Prescriptio n - Prior Authorizati on Request active Not Available Not Available N ot Available amoxicillin 500 mg capsule TK ONE C PO BID FOR 10 DAYS 04/28 completed Not Available Not Available Not Available clindamycin HCl 300 mg capsule Take 1 capsule every 6 hours by oral route for 7 days. active Not Available Not Available No t Available Anusol-HC 2.5 % rectal cream with applicator Insert by rectal route one applicato r after bowel movements and at bedtime. 06/27 completed Not Available Not Available Not Available atorvastati n 10 mg tablet TAKE 1 TABLET BY MOUTH EVERY DAY 10/09 completed Arm Pain. Not Available Not Available Not Available azithromyci n 250 mg tablet TAKE 2 TABLETS (500 MG) BY ORAL ROUTE ONCE DAILY FOR 1 DAY THEN 1 TABLET (250 MG) BY ORAL ROUTE ONCE DAILY FOR 4 DAYS active Not Available Not Available No t Available ibuprofen 800 mg tablet TAKE 1 TABLET BY MOUTH EVERY 6-8 HOURS NEEDED 03/23 completed Not Available Not Available Not Available hydrocodone 5 mg-acetamin ophen 325 mg tablet active Not Available Not Available No t Available alendronate 70 mg tablet TAKE 1 TABLET BY MOUTH EVERY WEEK 2024 active Not Available Not Available Not Avai lable penicillin V potassium 500 mg tablet 04/28 completed Not Available Not Available Not Available phentermine 37.5 mg tablet TAKE 1 AND 1/2 TABLETS BY MOUTH EVERY DAY IN THE MORNING 07/06 completed Not Available Not Available Not Available acetaminoph en 300 mg-codeine 30 mg tablet 07/01 completed Not Available Not Available Not Available sulfamethox azole 800 mg-trimetho prim 160 mg tablet TAKE 1 TABLET BY MOUTH TWICE DAILY 12/18 completed Not Available Not Available Not Available aspirin 81 mg tablet,peter yed release Take 1 tablet every day by oral route as directed for 90 days. 09/22 completed Not Available Not Available Not Available levothyroxi ne 25 mcg tablet TAKE 1 TABLET BY MOUTH EVERY DAY 12/18 completed Not Available Not Available Not Available levothyroxi ne 75 mcg tablet TAKE 1 TABLET BY MOUTH EVERY DAY active Not Available Not Available No t Available amoxicillin 875 mg tablet active Not Available Not Available Not Available alprazolam 0.25 mg tablet TAKE 1 TABLET BY MOUTH THREE TIMES DAILY NEEDED active Not Available Not Available No t Available Proctozone- HC 2.5 % topical cream perineal applicator INSERT INTO THE RECTUM AFTER BOWEL MOVEMENTS AND HS active Not Available Not Available No t Available levothyroxi ne 50 mcg tablet Take 1 tablet every day by oral route in the morning for 90 days. 07/06 completed Not Available Not Available Not Available betamethaso ne dipropionat e 0.05 % topical cream active Not Available Not Available Not Available amoxicillin 250 mg capsule 07/01 completed Not Available Not Available Not Available hydroxyzine HCl 25 mg tablet 07/08 completed Not Available Not Available Not Available ergocalcife rol (vitamin D2) 1,250 mcg (50,000 unit) capsule TAKE 1 CAPSULE BY MOUTH EVERY WEEK 12/18 completed Not Available Not Available Not Available methylpredn isolone 4 mg tablets in a dose pack use as directed. 05/14 completed Not Available Not Available Not Available cefdinir 300 mg capsule TAKE 1 CAPSULE BY MOUTH TWICE DAILY 02/03 completed Not Available Not Available Not Available fluticasone propionate 50 mcg/actuati on nasal spray,suspe nsion active Not Available Not Available Not Available amoxicillin 875 mg-potassiu m clavulanate 125 mg tablet TAKE 1 TABLET BY MOUTH TWICE DAILY 02/03 completed Not Available Not Available Not Available ezetimibe 10 mg tablet TAKE 1 TABLET BY MOUTH EVERY DAY active Not Available Not Available No t Available cyclobenzap rine 5 mg tablet TAKE 1 TABLET BY MOUTH EVERY DAY AT BEDTIME active Not Available Not Available No t Available Vigamox 0.5 % eye drops Instill 1 drop 3 times a day by ophthalmi c route. active Not Available Not Available No t Available Livalo 2 mg tablet Take 1 tablet every day by oral route for 90 days. 10/03 completed Not Available Not Available Not Available Suprep Bowel Prep Kit 17.5 gram-3.13 gram-1.6 gram oral solution 07/04 completed Not Available Not Available Not Available Fluvirin 3439-6779 45 mcg (15 mcg x 3)/0.5 mL intramuscul ar suspension active Not Available Not Available N ot Available Fluvirin 45 mcg (15 mcg x 3)/0.5 mL intramuscul ar suspension ADM 0.5ML IM UTD 05/18 completed Not Available Not Available Not Available Flucelvax Quad (PF) 60 mcg (15 mcg x 4)/0.5 mL IM syringe ADM 0.5ML IM UTD 09/22 completed Not Available Not Available Not Available Flucelvax Quad 60 mcg (15 mcg x 4)/0.5 mL IM suspension ADM 0.5ML IM UTD 05/18 completed Not Available Not Available Not Available Fluzone Quad (PF) 60 mcg (15 mcg x 4)/0.5 mL IM syringe active Not Available Not Available N ot Available Flucelvax Quad 60 mcg (15 mcg x 4)/0.5 mL intramuscul ar susp [facility] active Not Available Not Available No t Available Vitals Date Recorded Body height Body mass index (BMI) Body weight Body temperature Heart rate Oxygen saturation Respiratory rate Systolic And Diastolic Provider Name and Address Organization Details Last Updated DateTime 4 167.64 cm 32.6 kg/m2 04902.6 6 g 97.4 [degF] 82 /min 97 % 17 /min 120/82 mm[Hg] Priscila Corrales RN [facility] [employer] [facility] 4 09:11:49 Date Recorded Body height Body mass index (BMI) Body weight Body temperature Heart rate Systolic And Diastolic Provider Name and Address Organization Details Last Updated DateTime 4 167.64 cm 32.4 kg/m2 95167.0 7 g 97.6 [degF] 72 /min 112/78 mm[Hg] Maru Bailey Adriana [facility] [employer] [facility] 4 09:55:36 Date Recorded Body height Body mass index (BMI) Body weight Body temperature Heart rate Systolic And Diastolic Provider Name and Address Organization Details Last Updated DateTime 4 167.64 cm 32.3 kg/m2 74746.4 7 g 97.6 [degF] 72 /min 124/76 mm[Hg] Maru Bailey Adriana [facility] [employer] [facility] 4 09:49:09 Date Recorded Body weight Body mass index (BMI) Body height Body temperature Heart rate Oxygen saturation Systolic And Diastolic Provider Name and Address Organization Details Last Updated DateTime 3 11679.8 1 g 33.7 kg/m2 167.64 cm 97.4 [degF] 82 /min 98 % 112/64 mm[Hg] Doreen martinez CMA [facility] [employer] [facility] 3 09:04:40 Date Recorded Body height Body mass index (BMI) Body weight Body temperature Heart rate Systolic And Diastolic Provider Name and Address Organization Details Last Updated DateTime 167.64 cm 31.8 kg/m2 56660.7 g 97.2 [degF] 78 /min 126/74 mm[Hg] Maru Westover, Adriana [facility] [email or web address] [facility] 11:00:08 Social History Question Answer Notes LastModified by Organization Details LastModified Time Tobacco Smoking Status Never Smoker Priscila Corrales RN null, [facility] [email or web address] [facility] 02/04/2024 09:02:48 Do You Have An Advance Directive? Yes Information not available 03/23/2024 What Is Your Level Of Caffeine Consumption? Moderate Information not available 03/23/2024 In The 14 Days Before Symptom Onset, Have You Had Close Contact With A Laboratory-confi rmed COVID-19 While That Case Was Ill? No Information not available 03/23/2024 In The 14 Days Before Symptom Onset, Have You Had Close Contact With A Person Who Is Under Investigation For COVID-19 While That Person Was Ill? No Information not available 03/23/2024 What Type Of Diet Are You Following? SPECIFIC Weight Watchers Information not available 02/04/2024 What Is The Highest Grade Or Level Of School You Have Completed Or The Highest Degree You Have Received? [id number] [email or web address] Information not available 02/04/2024 What Is The Fluoride Status Of Your Home? Unknown Information not available 03/23/2024 Are There Any Guns Present In Your Home? No Information not available 03/23/2024 [facility] 03/23/2024 Do You Have A Medical Power Of Transition Program Manager? Yes Information not available 03/23/2024 What Was The Date Of Your Most Recent Tobacco Screening? 10/03/2024 Information not available 10/03/2024 Do You Have Any Pets? Yes Information not available 03/23/2024 What Is Your Relationship Status? [email or web address] Information not available 02/04/2024 Do You Use Your Seat Belt Or Car Seat Routinely? Yes Information not available 03/23/2024 Do You Have Smoke And Carbon Monoxide Detectors In Your Home? Yes [email or web address] Information not available 02/04/2024 Are You Passively Exposed To Smoke? No [email or web address] Information not available 02/04/2024 Are There Any Smokers In Your House? No Information not available 02/04/2024 Has Tobacco Cessation Counseling Been Provided? No N/a Information not available 03/23/2024 Have You Recently Traveled Abroad? No Information not available 03/23/2024 Do You Have Any Dietary Restrictions? No [email or web address] Information not available 02/04/2024 Sex: Female Functional Status Question Answer Note LastModified by Organizat ion Details LastModified Time Do you use any illicit or recreational drugs? No Information not available 03/23/2024 Do you or have you ever used any other forms of tobacco or nicotine? No Information not available 03/23/2024 What is your level of alcohol consumption? None [email or web address] Information not available 02/04/2024 Are you currently employed? 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 Occasional [email or web address] Information not available 02/04/2024 Mental Status Question Answer Note LastModified by Organization D etails LastModified Time Do you feel stressed (tense, restless, nervous, or anxious, or unable to sleep at night)? [id number] [email or web address] Information not available 03/23/2024 Family History Relationship Description Onset Age of this Age Resolved Age Notes LastModified by Organization Details LastModified Time Brother Malignant neoplasm of kidney [email or web address] Not available 2023 09:01:08 Mother Scleroderma [email or web address] Not avail able 02/04/2024 09:01:49 Mother Raynaud's phenomenon [email or web address] Not available 02/03 09:02:02 Father Parkinson's disease Not available 2023 09:02:26 Medical History No medical history recorded. Gynecological HistoryNo gynecological history recorded. Obstetrics History GPAL:G 0 P 0 0 0 0 Immunizations Vaccine Type Date Status Note Provider Nam e and Address Organization Details Recorded Time Influenza, split virus, quadrivalent, preservative 7 completed Not Available [facility] 08/13/2023 22:36:28 Influenza, split virus, trivalent, preservative 4 completed Not Available [facility] 08/13/2023 22:36:28 Tdap 0 completed Not Available [facility] 08/13/2023 22:36:28 Influenza, split virus, quadrivalent, preservative 5 completed Not Available [facility] 08/13/2023 22:36:28 Tdap 4 completed Gabriel Blancas MD [address] [place] [address], [address], [facility] [employer] [facility] 03/23/2024 12:58:17 Past Encounters Encounter ID Performer Location Encounter Start Date Encounter Closed Date Diagnosis/Indication Diagnosis SNOMED-CT Code Diagnosis ICD10 Code Diagnosis IMO Codes Diagnosis Note [id number] Matt Quintero MD [facility] [place] [address] [place] [address] 08/20/2021 00:00:00 08/21/2021 06:31:25 [id number] Matt Quintero MD [facility] [place] [address] [place] [address] 10/09/2021 00:00:00 10/09/2021 09:25:55 [id number] Matt Quintero MD [facility] [place] [address] [place] [address] 12/18/2021 00:00:00 12/18/2021 09:18:00 [id number] Matt Quintero MD [facility] [place] [address] [place] [address] 05/14/2022 00:00:00 05/14/2022 11:13:46 [id number] Matt Quintero MD [facility] [place] [address] [place] [address] 07/08/2023 08:53:40 07/08/2023 10:29:26 Adult health examination 766753273 Z00.00 Doing well Hyperlipidemia 42135723 E78.5 Screening for malignant neoplasm of breast 846793215 Z12.39 Obesity 608986836 E66.9 [id number] Matt Quintero MD [facility] [place] [address] [place] [address] 02/04/2024 08:43:00 02/04/2024 09:20:11 Obesity 603924608 E66.9 Hypothyroidism 53598846 E03.9 Anxiety 55897824 F41.9 Fatigue 32435123 R53.83 Hemorrhoids 99578209 K64 .9 Hyperlipidemia 50182395 E78.5 [id number] Gabriel troncoso MD [facility] [place] [address] [place] [address] 03/23/2024 09:40:46 03/23/2024 10:36:22 Screening - NAD 577300179 Z13.9 C-scope: Dr Praveen cooley 04/2024, next 7-10 years Mammogram: 08/11/2023 : NegPAP: Get this if not done DEXA: Get this Get yearly flu shot, get tdap, get shingrix vaccineCan do RSV vaccineCan do COVID 19 boosters RTC in 3 months, get labs, ER if worse, she verbalized her understand ing of the above Hyperlipidemia 55463169 E78.5 On zetia 10mg daily, discussed that she may need to be on a statinGet labs Hypothyroidism 35181766 E03.9 On levothyrox ine 50mcgs dailyGet labs Obesity 212349054 E66.9 Used to be on phentermin e, advised not to take this as she feels that phentermin e makes her 'eat more'Eager to start on a GLP-1, denies any MCT or MEN2 or pancreatic or parathyroi d complaints , she is to get US thyroid also Screening for osteoporosis 975711296 Z13.820 Gynecologi c examination 67877434 Z01.419 Serum darci min B12 below reference range 834688957 R79.89 Otitis media 79564609 H6 6.91 R TM is perforated , states that this has been since many years, was told she may need to have surgery, has seen Dr Husain in the past, will refer to Dr Jarrell ENT as she may need to get the TM reconstruc jose de jesus Screening for malignant neoplasm of colon 831646413 Z12.11 Administra tion of diphtheria, pertussis, and tetanus vaccine 857813266 Z23 [id number] Gabriel troncoso MD [facility] [place] [address] [facility] [address] [address] 07/06/2024 09:41:05 07/06/2024 10:21:01 Screening - NAD [id number] Z13.9 C-scope: Dr Morton n 04/2024, next 7-10 yearsColog uard: Negative 05/03/2024 Mammogram: 08/11/2023 : Neg PAP: Get this if not done DEXA: Get this Get yearly flu shot, get tdap, get shingrix vaccineCan do RSV vaccineCan do COVID 19 boosters RTC in 3 months, get labs, ER if worse, she verbalized her understand ing of the above Hyperlipidemia 67332491 E78.5 Not taking zetia 10mg dailyStart on livalo, as atorvastat in caused arm painGet labs Hypothyroidism 98272319 E03.9 On levothyrox ine 50mcgs daily, will increase to 75mcgs daily as FT4 is low normalGet labsGet US thyroid Obesity 819273913 E66.9 Used to be on phentermin e, advised not to take this as she feels that phentermin e makes her 'eat more'Eager to start on a GLP-1, denies any MCT or MEN2 or pancreatic or parathyroi d complaints , she is to get US thyroid also Screening for osteoporosis 400003544 Z13.820 Gynecologi c examination 37455936 Z01.419 Serum darci min B12 below reference range 594798680 R79.89 Otitis media 48198644 H6 6.91 R TM is perforated , states that this has been since many years, was told she may need to have surgery, has seen Dr Husain in the past, will refer to Dr Jarrell ENT as she may need to get the TM reconstruc jose de jesus OV 07/06/2024 :Get a referral to ENT, states that the Dr Jarrell is not in her network, will refer to Dr Carreno, she does note that her hearing is much better Screening for cardiovascular system disease [id number] Z13.6 [id number] Gabriel troncoso MD [facility] Primary Care [facility] [address] [place] [address] 10/03/2024 10:16:37 10/03/2024 11:43:11 Screening - NAD [id number] Z13.9 C-scope: Dr Morton n 04/2024, next 7-10 yearsColog uard: Negative 05/03/2024 Mammogram: 08/11/2023 : Neg PAP: Get this if not done DEXA: 07/18/2024 : OP, get on prolia, case sent to [facility] 10/03/2024 Get yearly flu shot, get tdap, get shingrix vaccineCan do RSV vaccineCan do COVID 19 boosters RTC in 3 months, get labs, ER if worse, she verbalized her understand ing of the above Hyperlipidemia 51295118 E78.5 Is now taking zetia 10mg dailyNot on livalo, as atorvastat in caused arm painGet labs Hypothyroidism 65569426 E03.9 On levothyrox ine 75mcgs dailyGet labsUS thyroid 07/20/2024 ; F/u in one year Obesity 161051584 E66.9 Used to be on phentermin e, advised not to take this as she feels that phentermin e makes her 'eat more'Eager to start on a GLP-1, denies any MCT or MEN2 or pancreatic or parathyroi d complaints Screening for osteoporosis 491774939 Z13.820 Gynecologi c examination 93111993 Z01.419 Serum darci min B12 below reference range 281175079 R79.89 Otitis media 62856103 H6 6.91 R TM is perforated , states that this has been since many years, was told she may need to have surgery, has seen Dr Husain in the past, will refer to Dr Jarrell ENT as she may need to get the TM reconstruc jose de jesus OV 07/06/2024 :Get a referral to ENT, states that the Dr Jarrell is not in her network, will refer to Dr Carreno, she does note that her hearing is much better Screening for cardiovascular system disease 079925389 Z13.6 Screening mammography 24 435710 Z12.31 Upper resp iratory infection 24336146 J06.9 Get testedGet on z-packRest , isolate and ER if worse Addendum: 10/03/2024 : Negative case sent Health Concerns Section Related Observation LastModified by Organization Detai ls LastModified Time None Recorded Concern Status LastModified by Organization Details LastModified Time None Recorded Advance Directives Directive Y: Payers Insurance Date Sequence Insurance Name Policy Number Policy Bah Covered Member ID Bah Member ID Guarantor Name 11/22/2024 1 [employer] (O) ILONEX Lula Garland [id number] Lula Garland 02/03/[address] [facility] (O) [id number] Leonardo Garland [id number] Lula Garland Notes Date Note Type Note Provider Name and Address Organization Details Recorded Time 07/08/2023 text/html Here today for annual physical. Here today for needs phentermine. Has not taken anything for 2 weeks. It keeps her from thinking about food. No s/e with this. No issues today.Needs a mammogram. Will be due in 08/01. No fmhx of DM. Matt Quintero MD [address], [place], [address], [email or web address] 07/08/2023 09:26:58 02/04/2024 text/html ROS as noted in the HPI wants refill phentermine; right ear aggravating her Edward THIERNO George [address], [place], [address], [email or web address] 02/16/2024 16:37:41 03/23/2024 text/html OV 03/23/2024:Here to establish care Present history:Ephraim perkinsdismObesity Here to discuss above and get labs Gabriel Blancas MD [address], [place], [address], [facility] 03/23/2024 13:04:25 07/06/2024 text/html OV 03/23/2024:Here to establish care Present history:Ephraim perkinsdismObesity Here to discuss above and get labs OV 07/06/2024: Here for her f/u apt, she feels well today, she did do the labs at [facility] but these were not reported Gabriel Blancas MD [address], [place], [address], [facility] 07/06/2024 11:49:32 10/03/2024 text/html OV 03/23/2024:Here to establish care Present history:Ephraim perkinsdismObesity Here to discuss above and get labs OV 07/06/2024: Here for her f/u apt, she feels well today, she did do the labs at [facility] but these were not reported OV 10/03/2024: Here for her f/u apt, she is doing well today, c/o URI sx with feeling feverish, nasal and congestion and non productive cough, no chest pain or SOB, no wheezing Gabriel Blancas MD [address], [place], [address], [employer] [facility] 10/03/2024 17:52:20 OBGyn Episode No OBEpisode recorded.
--- OUTSIDE RECORDS SUMMARY | 2025-11-05 14:29 | XMS_ITS | Patient Health Record ---
Author Organization [facility] Address [address] [place], [place] [id number] Care Team Providers Care Wood Heel Flap Inserter Name Role Phone Duarte Ly Primary Care Provider Allergies No Known Allergies Reason For Referral No Information Medications Medication SIG (Take, Route, Frequency, Duration) Notes Start Date End Date Status Levothyroxine Sodium 25 MCG Tablet 1 tab(s) orally once a day Unknown Ezetimibe 10 MG Tablet 1 tab(s) orally o nce a day Unknown Plaquenil 200 MG Tablet 1 tab(s) orally once a day Unknown Problems Problem Type SNOMED Code ICD Code Onset Dates Problem Status W/U Status Risk Notes Problem Conductive hearing loss of right ear with normal hearing on left side (disorder) (0830682517) Conductive hearing loss, unilateral, right ear, with unrestricted hearing on the contralateral side (H90.11) Active confirmed Plan Of Treatment No Information Insurance Providers Payer Name Payer Address Payer Phone Subscriber Number Group Number Insured Name Patient Relationship to Insured Coverage Start Date Coverage End Date [facility] [address] [place] [address] [id number] Phil Jennifer Self - patient is the insured Medical (General) History Medical History History ICD Code asthma, seasonal allergies, Surgical History Surgery Date(Month/Year) bladder suspension, unspecified
--- OUTSIDE RECORDS SUMMARY | 2025-11-05 14:29 | XMS_ITS | Clinical Summary ---
Author Organization [facility] Address [address] [place] [address] Care Team Providers Care Supervisor Powdered Metal Name Role Phone Matt Quintero MD Primary Care Provider Sagrario Rose MD Unavailable [phone] Source Comments [facility],non-owned Affiliates and Associated Physician Practices is amultiple site organization consisting of ambulatory clinics and hospital sitesin [place], [place], [place] and [place]. This disclosure is being madepursuant to the Care Everywhere program and may not contain all information available regarding this patient. Last updated 18.[facility] Allergies No known active allergies Medications * Be aware that medications may not be up to date on this document. Alwaysverify current medications with the patient. No known medications Social History Tobacco Use Types Packs/Day Years Used Date Smoking Tobacco: Never Smokeless Tobacco: Never Comments No Sex and Gender Information Value Date Recorded Sex Assigned at Not on file Legal Sex Female 11:58 AM DECK OFFICER Gender Identity Not on file Sexual Orientation Not on file Last Filed Vital Signs Vital Sign Reading Time Taken Comments Blood Pressure 132/84 11/27/2017 5:12 PM DECK OFFICER Pulse 78 11/27/2017 5:12 PM DECK OFFICER Temperature 36.8 C (98.2 F) 11/27/2017 5:12 PM DECK OFFICER Respiratory Rate 16 11/27/2017 5:12 PM DECK OFFICER Oxygen Saturation 97% 11/27/2017 5:12 PM DECK OFFICER Inhaled Oxygen Concentration - - Weight 88.5 kg (195 lb) 11/27/2017 5:12 PM DECK OFFICER Height 167.6 cm (5' 6) 11/27/2017 5:12 PM DECK OFFICER Body Mass Index 31.47 11/27/2017 5:12 PM DECK OFFICER Plan of Treatment Health Maintenance Due Date Last Done Comments COLOGUARD (AGES 45-75) - COL ON CA SCREENING 1963 COLON MONITORING 1963 COLONOSCOPY - COLON CA SCREENING 1963 CT COLONOGRAPHY - COLON CA SCREENING 1963 Colorectal Cancer Screening 1963 FIT - COLON CA SCREENING 1963 FLEX SIG - COLON CA SCREENING 1963 LIPID TESTING 1963 MAMMOGRAM 1963 HIV SCREENING 1978 HEPATITIS C SCREENING 05/26/1981 DTAP/TDAP/TD VACCINES (1 - Tdap) 1982 PNEUMOCOCCAL VACCINE 50+ (1 of 1 - PCV) 2013 ZOSTER VACCINE (1 of 2) 2013 SCREENING FOR DIABETES 11/11/2017 DEPRESSION SCREENING 11/09/2024 COVID-19 VACCINE (1 - 2024-2 6 season) 2025 INFLUENZA VACCINE (#1) 2025 Respiratory Syncytial Virus (RSV) Vaccine Pt: or over 60 yrs (1 - 1-dose 75+ series) 2038 HEPATITIS B VACCINE Aged Out No longe r eligible based on patient's age to complete this topic HIB VACCINE Aged Out No longer eligi ble based on patient's age to complete this topic HPV VACCINE Aged Out No longer eligi ble based on patient's age to complete this topic MENINGOCOCCAL (Group B) VACC INE SHARED DECISION-MAKING Aged Out No longer eligibl e based on patient's age to complete this topic MENINGOCOCCAL GROUPS A/C/Y/W VACCINE Aged Out No longer eligible b ased on patient's age to complete this topic Insurance [facility] Care Teams Supervisor Powdered Metal Relationship Specialty Start Date End Date Matt Quintero MD [address] [place] [address] [address] [place] [address] PCP - General Family Medicine 11/11/17 Sagrario Rose MD [address] [place] [address] [address] [place] [address] Family Medicine 11/11/17
[2025-11-05 14:30] VITALS: BP 103/59; PULSE 96; RESP 20; TEMP 36.1; O2SAT 96
--- NOTE | 2025-11-05 16:33 | ED_ITS ---
HPI - Skin/Abscess/Foreign Bdy General Chief complaint: Skin/Abscess/Foreign Body Stated complaint: abscess to posterior neck Time Seen by Provider: 11/05/25 15:57 History of Present Illness HPI narrative: Patient is a 60-year-old female who presents ER with cystic abscess the right posterior neck. Was seen in urgent care yesterday and given Bactrim as well as topical mupirocin. They did not drain it. He continues a swelling get worse and now had the head on it. She has scheduled follow-up with Dermatology but it is in several weeks and she plans on going to [employer] in the near future. Related Data Home Medications ?Medication ?Instructions ?Recorded ?Confirmed ?Last Taken ?Type levothyroxine 75 mcg tablet 75 mcg PO DAILY 05/25/25 1 Unknown History (Synthroid) alendronate 70 mg tablet 70 mg PO WEEKLY 06/01/2501/03 Unknown History ezetimibe 10 mg tablet 10 mg PO DAILY 06/01/2501/03 Unknown History Allergies Allergy/AdvReac Type Severity Reaction Status Date / Time No Known Allergies Allergy Unknown Unverified 08/10/25 07:40 Review of Systems Constitutional: Constitutional: Reports no additional constitutional complaints Musculoskeletal: Musculoskeletal: Reports no additional musculoskeletal complaints Integumentary/Breasts: Skin/Breast: Reports system reviewed and no additional complaints, except as docu PMFSH Past Medical History Medical History (Updated 11/05/25 @ 16:38 by Jayson Ayala MD) Disorder of thyroid Osteoporosis Surgical History Surgical History (Updated 05/25/25 @ 10:37 by Linda Moon MA) Hx of cholecystectomy Family History Family History (Updated 05/25/25 @ 10:37 by Linda Moon MA) Sibling Cancer Social History Social History (Updated 05/25/25 @ 10:44 by Linda Moon MA) Smoking status: Never smoker Alcohol use details: Does not drink Alcohol Substance use type: does not use Lack of Transportation: No Lack of Food: Never True Current Housing: I Have Housing Concerned About Future Housing: No Difficulty Paying Gas/Electric Bills: No Difficulty Paying for Meds: No Currently Unemployed: No Education: High School Diploma/GED Difficulty w/ Childcare or Family Care: No Living arrangements: with family Additional occupation/education comments: [employer] Employed C[employer] Gender identity (if verbalized by the patient): Female Agree to blood products: Yes Exam Narrative: GENERAL: Well-appearing, well-nourished, and in no acute distress. HEAD: Normocephalic, atraumatic. ENT: Mucous membranes moist. EXTREMITIES: Normal range of motion. No edema. SKIN: Warm, dry, large cystic abscess posterior right neck. 2 cm x 3 cm.. NEURO: Alert and oriented x3. PSYCH: Normal mood and affect. Course Course Emergency Course: Tolerated drainage. Continue Bactrim. Remove packing in 2 days. Bandage applied with triple antibiotic ointment. Vital Signs Vital signs: Vital Signs Temperature 96.9 F L 11/05/25 14:30 Pulse Rate 96 11/05/25 14:30 Respiratory Rate 20 11/05/25 14:30 Blood Pressure 103/59 L 11/05/25 14:30 Pulse Oximetry 96 11/05/25 14:30 Oxygen Delivery Room Air 11/05/25 14:30 Temperature 96.9 F L 11/05/25 14:30 Pulse Rate 96 11/05/25 14:30 Respiratory Rate 20 11/05/25 14:30 Blood Pressure 103/59 L 11/05/25 14:30 Pulse Oximetry 96 11/05/25 14:30 Oxygen Delivery Room Air 11/05/25 14:30 Procedures Abscess I/D neck: Date of Incision: 11/05/25 Time of Incision: 16:30 Local Anesthetic: lidocaine 1% and with epi Amount of anesthesia used (mL): 3 Technique: incised with #11 blade Irrigation: No Packing used?: iodoform I&D Results: Pus MDM Differential Diagnosis Differential Diagnosis: Cellulitis, cystic abscess, tumor Discharge Plan Discharge Clinical Impression: Abscess Patient Disposition: Home Condition: Stable Instructions: Abscess (ED) Additional Instructions: Remove your packing in 48 hours. Return the ER if you have increased pain, increased drainage, or additional concerns. You may finish your oral antibiotic. Patient Language: Romansh Prescriptions: No Action levothyroxine [Synthroid] 75 mcg tablet 75 mcg PO DAILY alendronate 70 mg tablet 70 mg PO WEEKLY ezetimibe 10 mg tablet 10 mg PO DAILY albuterol sulfate [Ventolin HFA] 90 mcg/actuation HFA aerosol inhaler 1 inh inhalation Q4H PRN (Reason: shortness of breath or wheezing) Qty: 8.5 0RF cholecalciferol (vitamin D3) 1,250 mcg (50,000 unit) capsule See Rx Instructions .ROUTE .COMPLEX Qty: 12 0RF Dose Instruction: TAKE 1 CAPSULE BY MOUTH EVERY WEEK Rx Instructions: TAKE 1 CAPSULE BY MOUTH EVERY WEEK Zepbound 5 mg/0.5 mL solution 5 mg subcut WEEKLY Qty: 2 0RF Follow-up/Referrals: Saundra Rocha APRN [Primary Care Provider, Family Practice] - 1 Week
--- OUTSIDE RECORDS SUMMARY | 2025-11-05 16:40 | XMS_ITS | Clinical Summary ---
Author Organization [facility] Address [address] [place] [address] Care Team Providers Care Sales Counselor Name Role Phone Matt Quintero MD Primary Care Provider [phone] Sagrario Rose MD Unavailable [phone] Source Comments [facility],non-owned Affiliates and Associated Physician Practices is amultiple site organization consisting of ambulatory clinics and hospital sitesin [place], [place], [place] and [place]. This disclosure is being madepursuant to the Care Everywhere program and may not contain all information available regarding this patient. Last updated 18.[facility] Allergies No known active allergies Medications * [...] on file Legal Sex Female 11:58 AM DIVISION SUPERINTENDENT Gender Identity Not on file Sexual Orientation Not on file Last Filed Vital Signs Vital Sign Reading Time Taken Comments Blood Pressure 132/84 11/27/2017 5:12 PM DIVISION SUPERINTENDENT Pulse 78 11/27/2017 5:12 PM DIVISION SUPERINTENDENT Temperature 36.8 C (98.2 F) 11/27/2017 5:12 PM DIVISION SUPERINTENDENT Respiratory Rate 16 11/27/2017 5:12 PM DIVISION SUPERINTENDENT Oxygen Saturation 97% 11/27/2017 5:12 PM DIVISION SUPERINTENDENT Inhaled Oxygen Concentration - - Weight 88.5 kg (195 lb) 11/27/2017 5:12 PM DIVISION SUPERINTENDENT Height 167.6 cm (5' 6) 11/27/2017 5:12 PM DIVISION SUPERINTENDENT Body Mass Index 31.47 11/27/2017 5:12 PM DIVISION SUPERINTENDENT Plan of Treatment Health Maintenance Due Date [...] patient's age to complete this topic Insurance [facility] Care Teams Sales Counselor Relationship Specialty Start Date End Date Matt Quintero MD [address] [place] [address] [address] [place] [address] PCP - General Family Medicine 11/11/17 Sagrario Rose MD [address] [place] [address] [address] [place] [address] Family Medicine 11/11/17
== END 2025-11-05 16:53 | disposition home or self-care (01) ==
PROVIDERS: Emergency Provider Emergency Medicine; PCP Nurse Practitioner Adult Health
DX: L02.11 Cutaneous abscess of neck (principal)
CPT/HCPCS: 10060; 10061; 99282; 99283